=== PATIENT | female | born 1965 | race Caucasian/White ===

== ENCOUNTER 2024-07-21 19:15 | Emergency (ER) | payer OTHER, SELFPAY ==
[2024-07-21] VITALS (7 sets, daily range): BP systolic 112–127; BP diastolic 73–96; PULSE 61–71; BMI 25.5
--- NOTE | 2024-07-21 19:37 | ED.PDOC.TRB ---
ED Provider Triage
-
Patient seen by provider in Triage?: Seen in Triage
Attestation: A medical screening examination has been initiated by a qualified medical provider. Based on the assessment performed at this time, it has been determined that an emergent medical condition may exist and the patient has been informed
that further medical evaluation and possible additional diagnostic testing may be needed.
HPI: 59yoF here with vertigo x several weeks as well as a visual disturbance. She states it feels like her eye muscles are tired and the R eye is not tracking. Also c/o pressure behind R eye. She started with palpitations and chest tightness 2 days
ago. She had a near syncopal episode this afternoon while driving.
GENERAL: Alert , in no apparent distress
EYE: No visual abnormalities. PERRL. Visual alves normal.
NECK: Trachea midline
ENT: No visible abnormalities.
LUNGS: No acute respiratory distress
NEUROLOGICAL: Alert and oriented
SKIN: Skin intact. No visible changes.
MUSCULOSKELETAL: Moving extremities normally
PSYCH: Normal and appropriate interaction.
This is a medical evaluation conducted in person to initiate diagnostic evaluation and provide initial therapeutics. Please see further documentation by the treating clinician.
Cardiac labs, EKG, and CT head ordered.
[2024-07-21 20:13] LABS: % Basophils 1.3 % (0-2); % Eosinophils 3.3 % (0-6); % Immature Granulocytes 0.2 % (0-0.5); % Lymphocytes 38.1 % (20.5-51.1); % Monocytes 5.9 % (1.7-9.3); % Neutrophils 51.2 % (42.2-75.2); Absolute Basophils 0.1 10^3/uL (0-0.2); Absolute Eosinophils 0.2 10^3/uL (0-0.7); Absolute Lymphocytes 2.4 10^3/uL (1.2-3.4); Absolute Monocytes 0.4 10^3/uL (0.1-0.6); Absolute Neutrophils 3.2 10^3/uL (1.4-6.5); Hematocrit 38.8 % (37.0-47.0); Mean Corp Hgb Conc. 33.5 g/dL (33.0-37.0); Mean Corpuscular Hgb 30.5 pg (27.0-31.0); Mean Corpuscular Volume 91.1 fL (81.0-99.0); Mean Platelet Volume 8.9 fL (7.4-10.4); Nucleated Red Blood Cells % 0 %; Platelet Count 241 10^3/uL (130-400); Red Blood Cell Count 4.26 10^6/uL (4.20-5.40); Red Cell Dist. Width 12.3 % (11.5-14.5); White Blood Cell Count 6.3 10^3/uL (4.8-10.8)
[2024-07-21 20:26] LABS: ALT (SGPT) 43 U/L (0-35); AST (SGOT) 30 U/L (14-36); Albumin 4.5 g/dl (3.5-5.0); Alkaline Phosphatase 78 U/L (38-126); Blood Urea Nitrogen 23 mg/dl (7-17); Carbon Dioxide 27 mmol/L (22-30); Chloride 103 mmol/L (98-107); Glucose 132 mg/dl (70-99); Potassium 4.5 mmol/L (3.5-5.1); Sodium 139 mmol/L (135-145); Total Bilirubin 0.4 mg/dl (0.2-1.3); Total Protein 6.6 g/dl (6.3-8.2); eGFR > 60.00
[2024-07-21 20:39] LABS: Troponin I < 0.012 ng/ml
--- NOTE | 2024-07-21 22:06 | ED.GENMED ---
History of Present Illness
<CHASE Fairchild - Last Filed: 07/21/24 23:02>
General
Chief Complaint: Cardiac Symptoms
Source: patient
Time Seen by Provider: 07/21/24 22:03
Nursing documentation reviewed up to this point in time: agreed with
History of Present Illness
History of Present Illness:
Patient is a 59 year old female presenting to the ED with complaints of palpitations x 2 days. Patient states she had a virus 3 weeks ago that resolved and a day later she developed having vertigo symptoms that included right eye pressure nausea and
a headache. The Immanuel maneuver originally helped, but within the past 2 days she states it did not and started having intermittent palpitations. She described her eye as a pressure on the right side that was worse with looking left to right and
light exposure. It worsens throughout the day while she has her eyes open. Ibuprofen did not alleviate symptoms. Around 130pm today she states she had a near syncopal episode while driving which brought her to the ER. The eye symptoms are better
with when she closes her eyes and resting. The palpitations were described as a fluttering in her mid chest. Something like this has never happened to her before. The palpitations are worse when she is having the vertigo symptoms. She denies chest
pain changes in vision fever vomiting numbness tingling sob.
Patient has a history of vertigo and is not on any medication for it. She denies history of HTN HLD DM arrhythmia. She takes ibuprofen but is not on any chronic medication.
Review of Systems
<CHASE Fairchild - Last Filed: 07/21/24 23:02>
Review of Systems
Allergies reviewed?: Yes
Constitutional: Reports no symptoms
EENT: Reports other (right eye pressure)
Respiratory: Reports no symptoms
Cardiac: Reports palpitations
ABD/GI: Reports no symptoms
Neurological: Reports headache
Phy Exam
<CHASE Fairchild - Last Filed: 07/21/24 23:02>
General Physical Exam
General Presentation: well appearing
General age: appears stated age
General Habitus: normal
General Mental: alert
Eye Exam
Eye Exam: PERRL, EOMI (no nystagmus but dull pain in R eye when looking left to right. ) and conjunctiva normal
Eye Exam General: PERRL: bilateral and EOM intact: bilateral (pain in R eye when looking left to right )
Cardiovascular Exam
Cardiovascular Exam: regular rate/rhythm, no edema, no gallop, no JVD, no murmur and normal peripheral pulses
Pulmonary Exam
Pulmonary Exam: lungs clear, no respiratory distress, no rales, chest non tender, no crackles, no rhonchi, no stridor, no wheezing and no cough
Cerebellar
Cerebellar Function: normal finger to nose and normal heel to [place]
Course
<CHASE Fairchild - Last Filed: 07/21/24 23:02>
Orders/Labs/Results
Orders:
Orders
07/21/24 19:17
Electrocardiogram (*1) Urgent
Reason for Study: Palpitations
EKG- Treatment ONCE
07/21/24 19:44
CT Head W/o Iv Contrast Urgent
Comment:
Reason For Exam: Headache, visual disturbance
07/21/24 20:00
CMP [Comprehensive Metabolic Panel] Urgent
Complete Blood Count/With Diff Urgent
TSH Reflex To Free T4 Urgent
Comment: ADD ON
Troponin I Urgent
07/21/24 22:51
0.9% Sodium Chloride 1000 ml [Nss] 1,000 ml IV BOLUS
07/21/24 23:11
Cardiac Monitoring- Treatment ONCE
Orthostatic VS- Treatment ONCE
07/21/24 23:12
Add On- LAB Urgent
Tests Added?: TSH reflex to free T-4
Ketorolac [Toradol] 30 mg IV NOW STA
Pantoprazole [Protonix IV] 40 mg IV NOW STA
07/22/24 00:37
Meclizine [Antivert] 25 mg PO NOW STA
Abnormal Lab Results
07/21/24
20:00
BUN 23 H mg/dl
(7-17)
Glucose 132 H mg/dl
(70-99)
ALT 43 H U/L
(0-35)
07/21/24 20:00
07/21/24 20:00
Vital Signs
Initial and Last Documented VS:
Initial Vital Signs
Temp Pulse BP Pulse Ox
97.7 F 83 123/77 100
07/21/24 19:25 07/21/24 19:25 07/21/24 19:25 07/21/24 19:25
Last Documented Vital Signs
Temp Pulse Resp BP Pulse Ox
97.7 F 63 17 115/70 94
07/21/24 19:26 07/22/24 00:15 07/22/24 00:15 07/22/24 00:00 07/22/24 00:15
<Rossy Hairston, DO - Last Filed: 07/22/24 02:14>
Orders/Labs/Results
Orders:
Orders
07/21/24 19:17
Electrocardiogram (*1) Urgent
Reason for Study: Palpitations
EKG- Treatment ONCE
07/21/24 19:44
CT Head W/o Iv Contrast Urgent
Comment:
Reason For Exam: Headache, visual disturbance
07/21/24 20:00
CMP [Comprehensive Metabolic Panel] Urgent
Complete Blood Count/With Diff Urgent
TSH Reflex To Free T4 Urgent
Comment: ADD ON
Troponin I Urgent
07/21/24 22:51
0.9% Sodium Chloride 1000 ml [Nss] 1,000 ml IV BOLUS
07/21/24 23:11
Cardiac Monitoring- Treatment ONCE
Orthostatic VS- Treatment ONCE
07/21/24 23:12
Add On- LAB Urgent
Tests Added?: TSH reflex to free T-4
Ketorolac [Toradol] 30 mg IV NOW STA
Pantoprazole [Protonix IV] 40 mg IV NOW STA
07/22/24 00:37
Meclizine [Antivert] 25 mg PO NOW STA
Abnormal Lab Results
07/21/24
20:00
BUN 23 H mg/dl
(7-17)
Glucose 132 H mg/dl
(70-99)
ALT 43 H U/L
(0-35)
07/21/24 20:00
07/21/24 20:00
Vital Signs
Initial and Last Documented VS:
Initial Vital Signs
Temp Pulse BP Pulse Ox
97.7 F 83 123/77 100
07/21/24 19:25 07/21/24 19:25 07/21/24 19:25 07/21/24 19:25
Last Documented Vital Signs
Temp Pulse Resp BP Pulse Ox
97.7 F 63 17 115/70 94
07/21/24 19:26 07/22/24 00:15 07/22/24 00:15 07/22/24 00:00 07/22/24 00:15
<CHASE Fairchild - Last Filed: 07/21/24 23:02>
MDM/Problems Addressed
Differential Diagnosis Includes:
vertigo, anxiety, migraines
MDM/Problems Addressed:
CT and ekg normal, give fluids and vertigo meds
<CHASE Fairchild - Last Filed: 07/21/24 23:02>
*EKG
Interpreted by ED Provider?: Yes
Interpretation: normal
Comparison EKG: no comparison EKG present
Rate: normal
Rhythm: sinus
[place]: normal axis
Interval: normal interval
QRS Pattern: normal QRS
Ischemia: no ischemia
*Laminator Interpretation
Rate: normal
Interpretation: normal
Rhythm: sinus
*Critical Care Note
Total Time (30-74mins, 75-104mins- exclusive of procedures): Not Applicable
<Rossy Hairston DO - Last Filed: 07/22/24 02:14>
*Radiology
Radiology exam reviewed: radiology read reviewed
*Pulse Oximetry
Patient hypoxic: no
ED Attending Note
<CHASE Fairchild - Last Filed: 07/21/24 23:02>
-
Portions of this chart may have been created with voice recognition software.� Occasional wrong word or��sound alike� substitutions may have occurred due to the inherent limitations of voice recognition software.
<Rossy Hairston DO - Last Filed: 07/22/24 02:14>
ED Attending Note
Patient seen and examined by attending physician: Yes
I performed the substantive portion of visit, reviewed & personally made and approve the management plan that is documented in note by myself or DIDI.: Yes
ED Attending Note:
This is a 59-year-old woman who has history of seasonal allergies generally most symptomatic in the fall as well as history of intermittent positional vertigo, generally occurs once per year and most often during fall season.
She began with intermittent vertigo 3 weeks ago shortly after suffering a brief URI. Vertigo symptoms are worse with turning her head to the left and worse with movement of her eyes. For the most part have been temporized with Immanuel's maneuvers
but persistent and intermittent over the past 3 weeks as well as accompanied with some right eye discomfort which she describes as mild discomfort with movement of her eye as well as a sense of pressure behind her eye. No vision difficulty, no
blurred vision nor loss of vision. Ibuprofen has been helping with her discomfort and she has been taking ibuprofen on a near daily basis over the past 3 weeks but discontinued this 2 days ago with onset of intermittent palpitations as well as mild
substernal chest discomfort.
Today around 1:30 PM while [address] she developed palpitations accompanied with some lightheadedness feeling that she was going to pass out. She did not lose consciousness, no diaphoresis, no nausea or vomiting.
She takes no medicines on a daily basis.
Lifelong non-smoker. Rare alcohol use.
GENERAL: 59-year-old woman appears her stated age, bright and alert, pleasant, appears in no acute distress. Easily communicative. is accompanying.
EYE: pupils equal and reactive. Extraocular muscles intact. Gross visual acuity intact. Anicteric
NECK: Supple, nontender, no meningismus, no significant adenopathy.
ENT: posterior pharynx is clear, oral mucosa is moist. TM clear b/l, nares have moderately boggy pale blue turbinates.
CARDIAC: Regular rate and rhythm. no murmur.
LUNGS: Clear breath sounds bilaterally, no acute respiratory distress, no wheezes/rales/rhonchi
ABDOMEN: Soft, nondistended, without focal tenderness, no r/g, no cvat. normoactive BS.
NEUROLOGICAL: Alert and oriented x3, no focal neuro deficits. Gait is steady.
SKIN: Warm and dry, normal color, skin intact. No rash.
MUSCULOSKELETAL: No C/C/E. peripheral pulses are full and equal b/l. No palpable tenderness.
PSYCH: Normal and appropriate interaction.
Concern for benign paroxysmal positional vertigo, cardiac arrhythmia, ACS, orthostasis, migraine headache, sinusitis, electrolyte abnormality, thyroid disorder, less likely intracranial abnormality.
Thus far labs are unremarkable save for very mild prerenal azotemia. Troponin is normal. EKG shows normal sinus rhythm, no ectopy, overall unremarkable.
CT of the head is unremarkable as well.
Patient certainly has allergic rhinitis appearance on exam and with history of brief URI prior to onset of vertigo�history and exam most consistent with benign paroxysmal positional vertigo which may be aggravated by seasonal allergies and recent
URI.
Right eye discomfort may be eyestrain in nature, other consideration is migraine headache.
Intermittent palpitations and chest discomfort may be GERD in nature as patient has been taking a fair amount of ibuprofen over the past 3 weeks.
Will check orthostatic vital signs as well as check TSH.
Will initiate IV fluid bolus as well as IV dose of Toradol as well as an IV dose of Protonix.
If vertiginous symptoms persist will consider a dose of meclizine.
07/22/2024 0204 AM
Patient resting comfortably and reports significant improvement in dizziness after a dose of meclizine.
Right orbital discomfort has resolved as well and no further chest discomfort nor palpitations.
Will discharge to home with recommendations for prompt follow-up with PCP for recheck.
Discussed importance of remaining well-hydrated on a daily basis.
Recommend she resume Flonase as well as Claritin versus Zyrtec on a daily basis for allergic rhinitis which may be contributing to right orbital discomfort.
Will add a course of Protonix for what I suspect is GERD related to NSAID. Encouraged her to avoid ibuprofen at least in the near future and instead utilize Tylenol.
Will add meclizine for as needed dizziness.
Discharge Plan
Departure
Patient Disposition: Home (Routine Discharge)
Date of Disposition: 07/22/24
Time of Disposition: 02:09
Patient with high blood pressure during this ER visit?: No
Condition: Good
Discharge Problem:
Benign paroxysmal positional vertigo of left ear, Allergic rhinitis, seasonal, Heart palpitations, Gastroesophageal reflux disease
Instructions: Acid reflux and GERD in adults, Vestibular Exercises, Vertigo ED, Heart Palpitations
Prescriptions:
New
meclizine 25 mg tablet
25 mg PO QID PRN (Reason: dizziness, nausea) Qty: 20 0RF
pantoprazole [Protonix] 40 mg tablet,delayed release (DR/EC)
40 mg PO DAILY Qty: 30 0RF
Referrals:
Erin Sylvester CRNP [Family Provider] - Call in 1-3 days for appt
Activity Restrictions/Additional Instructions:
Stay well-hydrated on a daily basis.
Resume your daily Flonase as well as daily antihistamine such as Zyrtec/Claritin.
You have been prescribed meclizine that you can take up to 4 times daily as needed for dizziness.
You have also been prescribed Protonix to take once daily for what I suspect is acid reflux related to ibuprofen. I want you to temporarily avoid ibuprofen as well as other NSAIDs and instead you may take Tylenol/acetaminophen as needed for pain.
Follow-up with your primary care physician for recheck.
Interventions
Interventions:
*Risk Screen - Suicide Last Done: 07/21/24 19:19
*Neglect/Abuse Screening Last Done: 07/21/24 19:26
ED- Fall Risk Assessment Last Done: 07/22/24 00:20
ED- Pulmonary Assessment Last Done: 07/22/24 00:20
ED- Neurological Assessment Last Done: 07/22/24 00:20
ED-EENT Assessment Last Done: 07/22/24 00:20
ED- Cardiac Assessment Last Done: 07/22/24 00:20
Discharge Date and Time
Print Language: EQUATORIAL GUINEAN
[2024-07-21] MEDS: PROTONIX IV 40 MG IV (23:40)
[2024-07-21] MEDS: TORADOL 30 MG IV (23:40)
[2024-07-21] MEDS: NSS 1000 IV (23:40)
[2024-07-22] VITALS: BP 115/70
[2024-07-22] MEDS: ANTIVERT 25 MG PO (00:49)
[2024-07-22 01:00] VITALS: BP 119/76
[2024-07-22 01:10] LABS: TSH Reflex To Free T4 1.29 uIU/ml (0.47-4.68)
[2024-07-22 02:00] VITALS: BP 109/66
== END 2024-07-22 02:36 | disposition home or self-care (01) ==
LOC: EMR 19:15
PROVIDERS: Emergency Medicine; Physician Assistant; EMERGENCY PHYSICIAN Emergency Medicine; FAMILY PHYSICIAN Nurse Practitioner Family
DX: H81.12 Benign paroxysmal vertigo, left ear (principal); J30.9 Allergic rhinitis, unspecified; R00.2 Palpitations; K21.9 Gastro-esophageal reflux disease without esophagitis
CPT/HCPCS: 99284; 96374; 96375; 96361; 70450; 80053; 84443; 84484; 85025; 93005